=== PATIENT | female | born 1995 | race Caucasian/White ===

== ENCOUNTER 2017-06-19 21:19 | Emergency (ER) | payer MEDICAID, OTHER ==
[~2017-06-19] VITALS: Ht 170.2 cm; Wt 83.3 kg
[~2017-06-19 21:19] MED LIST: ACNE TOP; Docusate Sod/Senna PO; NAPR550 PO
[2017-06-19 21:23] VITALS: BP 120/71; PULSE 136; RESP 16; TEMP 102; O2SAT 100
--- NOTE | 2017-06-19 21:43 | PD ---
HPI Chief Complaint: Complaint Time Seen by Provider: 21:31 Travel History International Travel<30 days: Yes Contact w/Intl Traveler<30days: Yes Traveled to known affect area: Yes History of Present Illness HPI This 21-year-old female is complaining of burning with urination. Symptoms going on for several days. She's been having fever. She has a history of urinary tract infections. She has not had any sore throat or cough. There is been no vomiting or diarrhea. She is generally healthy. She says is no chance of . She is on her period now is at the right time. [facility] Past Medical History Diminished Hearing: No Immunizations Current: Yes Social History Alcohol Use: No Tobacco Use: No Substance Use: No Allergies-Medications (Allergen,Severity, Reaction): Coded Allergies: ceftriaxone (Verified Allergy, Severe, HIVES, 06/19/17) azithromycin (Unverified Adverse Reaction, Intermediate, Nausea/Vomiting, 06/19/17) Reported Meds & Prescriptions Reported Meds & Active Scripts Active No Active Prescriptions or Reported Medications Review of Systems General / Constitutional: Positive: Fever, Chills Eyes: No: Diploplia, Blurred Vision HENT: No: Headaches, Vertigo Cardiovascular: No: Chest Pain or Discomfort, Palpitations Respiratory: No: Cough, Shortness of Breath Gastrointestinal: No: Vomiting, Diarrhea Genitourinary: Positive: Dysuria Musculoskeletal: No: Myalgias, Arthralgias Skin: No Rash, No Itching Neurologic: No: Weakness, Dizziness Endocrine: No: Heat Intolerance Hematologic/Lymphatic: No: Easy Bruising Physical Exam Narrative GENERAL: Pulse rate is 136. Temp is 102 SKIN: Focused skin assessment warm/dry. HEAD: Atraumatic. Normocephalic. EYES: Pupils equal and round. No scleral icterus. No injection or drainage. ENT: No nasal bleeding or discharge. Mucous membranes pink and moist. NECK: Trachea midline. No JVD. CARDIOVASCULAR: Regular rate and rhythm. No murmur appreciated. RESPIRATORY: No accessory muscle use. Clear to auscultation. Breath sounds equal bilaterally. GASTROINTESTINAL: Abdomen soft, non-tender, nondistended. Hepatic and splenic margins not palpable. MUSCULOSKELETAL: No obvious deformities. No clubbing. No cyanosis. No edema. NEUROLOGICAL: Awake and alert. No obvious cranial nerve deficits. Motor grossly within normal limits. Normal speech. PSYCHIATRIC: Appropriate mood and affect; insight and judgment normal. Data Data Last Documented VS Vital Signs Date Time Temp Pulse Resp B/P (MAP) Pulse Ox O2 Delivery O2 Flow Rate FiO2 06/19/17 21:45 120 18 139/76 (97) 100 Room Air 06/19/17 21:23 102.0 Orders Orders Acetaminophen (Tylenol) (06/19/17 21:45) Ibuprofen (Motrin) (06/19/17 21:45) Urinalysis - C+S If Indicated (06/19/17 21:36) Complete Blood Count With Diff (06/19/17 21:39) Comprehensive Metabolic Panel (06/19/17 21:39) Lactic Acid Sepsis Protocol (06/19/17 21:39) Blood Culture (06/19/17 21:39) Iv Access Insert/Monitor (06/19/17 21:39) Sodium Chlor 0.9% 1000 Ml Inj (Ns 1000 M (06/19/17 21:45) Sodium Chlor 0.9% 1000 Ml Inj (Ns 1000 M (06/19/17 21:45) Ceftriaxone Inj (Rocephin Inj) (06/19/17 21:45) Urine Culture (06/19/17 21:35) Diphenhydramine Inj (Benadryl Inj) (06/19/17 23:00) Labs Laboratory Tests Test 06/19/17 21:35 06/19/17 21:55 Urine Color YELLOW Urine Turbidity SLIGHT Urine pH 5.5 Urine Specific [place] 1.013 Urine Protein TRACE mg/dL Urine Glucose (UA) NEG mg/dL Urine Ketones TRACE mg/dL Urine Occult Blood LARGE Urine Nitrite NEG Urine Bilirubin NEG Urine Leukocyte Esterase SMALL Urine RBC 10-14 /hpf Urine WBC 9-14 /hpf Urine Squamous Epithelial Cells > 8 /hpf Urine Bacteria RARE /hpf Microscopic Urinalysis Comment CULTURE INDICATED White Blood Count 10.3 TH/MM3 Red Blood Count 4.42 MIL/MM3 Hemoglobin 9.4 GM/DL Hematocrit 29.7 % Mean Corpuscular Volume 67.2 FL Mean Corpuscular Hemoglobin 21.2 PG Mean Corpuscular Hemoglobin Concent 31.5 % Red Cell Distribution Width 18.4 % Platelet Count 194 TH/MM3 Mean Platelet Volume 8.6 FL Neutrophils (%) (Auto) 79.9 % Lymphocytes (%) (Auto) 10.5 % Monocytes (%) (Auto) 9.3 % Eosinophils (%) (Auto) 0.1 % Basophils (%) (Auto) 0.2 % Neutrophils # (Auto) 8.2 TH/MM3 Lymphocytes # (Auto) 1.1 TH/MM3 Monocytes # (Auto) 1.0 TH/MM3 Eosinophils # (Auto) 0.0 TH/MM3 Basophils # (Auto) 0.0 TH/MM3 CBC Comment AUTO DIFF Blood Urea Nitrogen 13 MG/DL Creatinine 1.10 MG/DL Random Glucose 157 MG/DL Total Protein 8.0 GM/DL Albumin 3.6 GM/DL Calcium Level 8.5 MG/DL Alkaline Phosphatase 51 U/L Aspartate Amino Transf (AST/SGOT) 11 U/L Alanine Aminotransferase (ALT/SGPT) 14 U/L Total Bilirubin 0.8 MG/DL Sodium Level 133 MEQ/L Potassium Level 3.5 MEQ/L Chloride Level 102 MEQ/L Carbon Dioxide Level 23.3 MEQ/L Anion Gap 8 MEQ/L Estimat Glomerular Filtration Rate 62 ML/MIN Lactic Acid Level 1.1 mmol/L [facility] Medical Decision Making Medical Screen Exam Complete: Yes Emergency Medical Condition: Yes Medical Record Reviewed: Yes Differential Diagnosis Differential includes UTI, sepsis, Narrative Course Urinalysis shows 9-14 white cells 10-14 RBCs. Lactate is normal. Patient is given IV fluids Tylenol and ibuprofen. She was given an initial dose of Rocephin. After the infusion of Rocephin she developed some itchy macules on the face. They're about 3 macules which about a centimeter in diameter. I suspect these are allergic reaction to the Rocephin and she has been given Benadryl. She is to take Benadryl for the next 24 hours Diagnosis Primary Impression: Urinary tract infection Qualified Codes: N30.00 - Acute cystitis without hematuria Additional Impression: allergic reaction to Rocephin Additional Instructions: Take one tablet of Benadryl every 6 hours. Take Tylenol and Motrin for fever Scripts Sulfamethoxazole-Trimethoprim (Bactrim DS) 800-160 Mg Tab 1 TAB PO BID for Infection for 7 Days, TAB 0 Refills Prov: Atif Mejía MD 06/19/17 Disposition: 01 DISCHARGE HOME Condition: Stable Atif Mejía MD Jun 19, 2017 21:43
[2017-06-19 21:45] VITALS: BP 139/76; PULSE 120; RESP 18; O2SAT 100
[2017-06-19] MEDS ORDERED: ACETAMINOPHEN 325 MG TAB PO ONE (21:45)
[2017-06-19] MEDS ORDERED: SODIUM CHLOR 0.9% 1000 ML INJ 1,000 ML IV ONE ×2 (21:45)
[2017-06-19] MEDS ORDERED: cefTRIAXone INJ 2,000 MG in SODIUM CHLORIDE 0.9% INJ 100 ML IV ONE (21:45)
[2017-06-19] MEDS ORDERED: IBUPROFEN 600 MG TAB PO ONE (21:45)
[2017-06-19 22:14] LABS: BLOOD, URINE LARGE (NEG); GLUCOSE,URINE NEG (NEG); KETONE, URINE TRACE mg/dL (NEG); NITRITE,URINE NEG (NEG); PH, URINE 5.5 (5.0-8.5)
[2017-06-19 22:19] LABS: CHLORIDE 102 MEQ/L (98-107); POTASSIUM 3.5 MEQ/L (3.5-5.1); SODIUM (NA) 133 MEQ/L (136-145)
[2017-06-19 22:23] LABS: ANION GAP 8 MEQ/L (5-15); BICARBONATE 23.3 MEQ/L (21.0-32.0); BLOOD UREA NITROGEN 13 MG/DL (7-18)
[2017-06-19 22:26] LABS: ALT (GPT) 14 U/L (10-53); AST (GOT) 11 U/L (15-37); GLOMERULAR FILTRATION RATE 62 ML/MIN (>89)
[2017-06-19 22:26] LABS: URINE COLOR YELLOW (YELLW/STRAW)
[2017-06-19 22:27] LABS: BACTERIA, URINE RARE /hpf; COMMENT (UR) CULTURE INDICATED; CULTURE IF INDICATED CULTURE INDICATED; SQUAMOUS EPITHELIAL CELL URINE > 8 /hpf (0-5)
[2017-06-19 22:28] LABS: ALKALINE PHOSPHATASE 51 U/L (45-117)
[2017-06-19 22:31] LABS: TOTAL BILIRUBIN ADULT 0.8 MG/DL (0.2-1.0)
[2017-06-19 22:45] VITALS: BP 120/73; PULSE 104; RESP 16; O2SAT 100
[2017-06-19 23:00] VITALS: PULSE 104; RESP 16; TEMP 100.8; O2SAT 100
[2017-06-19 23:00] LABS: AUTOMATED NEUTROPHIL # 8.2 TH/MM3 (1.8-7.7); BASOPHIL % 0.2 % (0.0-2.0); EOSINOPHIL % 0.1 % (0.0-4.0); HEMATOCRIT 29.7 % (35.0-46.0); LYMPH % 10.5 % (9.0-44.0); LYMPHOCYTE # 1.1 TH/MM3 (1.0-4.8); MEAN CELL VOLUME 67.2 FL (80.0-100.0); MEAN CORPUSCULAR HEMOGLOBIN 21.2 PG (27.0-34.0); MEAN CORPUSCULAR HGB CONC 31.5 % (32.0-36.0); MONO % 9.3 % (0.0-8.0); NEUT % 79.9 % (16.0-70.0); PLATELET COUNT 194 TH/MM3 (150-450); RED BLOOD COUNT 4.42 MIL/MM3 (4.00-5.30); RED CELL DISTRIBUTION WIDTH 18.4 % (11.6-17.2); WHITE BLOOD COUNT 10.3 TH/MM3 (4.0-11.0)
[2017-06-19] MEDS ORDERED: diphenhydrAMINE HCL 50 MG/ML VIAL IV PUSH ONE (23:00)
[2017-06-19 23:01] LABS: HEMO FLAGS AUTO DIFF
[2017-06-19] MEDS ORDERED: BACT800T5 PO (23:19)
[2017-06-19 23:23] LABS: OVALOCYTES 1+ (NORMAL); PLATELET ESTIMATE SMEAR NORMAL (NORMAL)
[2017-06-19 23:24] LABS: PLATELET MORPHOLOGY NORMAL (NORMAL); SCAN/DIFF AUTO DIFF CONFIRMED
[2017-06-19 23:45] VITALS: BP 129/78; PULSE 90; RESP 16; O2SAT 100
== END 2017-06-19 23:50 | disposition home or self-care (01) ==
LOC: PHED 21:19
DX: N30.00 Acute cystitis without hematuria (principal); B96.89 Other specified bacterial agents as the cause of diseases classified elsewhere
CPT/HCPCS: 80053; 81001; 83605; 85025; 87040; 87086; 96361; 96365; 96375; 99284; J0696; J1200; J7030